=== PATIENT | male | born 1945 | race Hispanic/Latino ===

== ENCOUNTER 2021-10-26 20:39 | Emergency (ER) | payer OTHER, MEDICARE ==
[~2021-10-26] VITALS: Ht 160 cm; Wt 83.9 kg
[~2021-10-26 20:39] MED LIST: ACET-2079 PO; AMLO-258 PO; AZAT50TA17 PO; CEPH500T PO; CITA10TA89 PO; CLOP75TA32 PO; FERR-72 PO; IBUP-2076 PO; LOSA50TA64 PO; METH2.5T6 PO; METO25 PO; OMEP40CA21 PO; SIMV5TAB58 PO; TAMS-1 PO; TRAM50TA4 PO; VITAMIN D3 PO
[2021-10-26 21:09] LABS: BASOPHILS % (AUTO) 1.1 % (0.0-5.0); HEMATOCRIT 44.7 % (42-54); MEAN CORPUSCULAR HEMOGLOBIN 27.7 pg (27.0-33.0); MEAN CORPUSCULAR HGB CONC 32.7 g/dL (32.0-36.0); MEAN CORPUSCULAR VOLUME 84.8 fL (79-99); NEUTROPHILS % (AUTO) 66.4 % (40.0-77.0); PLATELET COUNT (AUTO) 244 K/uL (130-400); RED BLOOD CELL COUNT(AUTO) 5.27 MIL/uL (4.50-6.20); RED CELL DISTRIBUTION WIDTH 14.8 % (11.0-15.5); WHITE BLOOD COUNT (AUTO) 8.4 K/uL (4.8-10.8)
[2021-10-26 21:28] LABS: POTASSIUM 4.8 mmol/L (3.5-5.1)
[2021-10-26 21:32] LABS: ALBUMIN 3.8 g/dL (3.5-5.0); BILIRUBIN,TOTAL 0.8 mg/dL (0.2-1.0); TOTAL PROTEIN, SERUM 7.3 g/dL (6.0-8.3)
[2021-10-26] MEDS ORDERED: GUAIFENESIN-CODEINE 5 ML SYRUP ONE (21:54)
[2021-10-26] MEDS ORDERED: GUAIFENESIN-CODEINE 5 ML SYRUP PO ONE (22:00)
[2021-10-26 22:32] VITALS: BP 140/73
[2021-10-26] MEDS ORDERED: GUAI120L62 PO (22:35)
== END 2021-10-26 22:44 | disposition home or self-care (01) ==
LOC: EDH 20:39
DX: J42 Unspecified chronic bronchitis (principal); I10 Essential (primary) hypertension; M19.90 Unspecified osteoarthritis, unspecified site; Z79.1 Long term (current) use of non-steroidal anti-inflammatories (NSAID); Z79.899 Other long term (current) drug therapy; Z96.653 Presence of artificial knee joint, bilateral
CPT/HCPCS: 36415; 71045; 80053; 83605; 84484; 85025; 93005